=== PATIENT | female | born 1975 | race Caucasian/White ===

== ENCOUNTER 2019-01-12 07:28 | Emergency (ER) | payer OTHER ==
[~2019-01-12] VITALS: Ht 175.3 cm; Wt 77.1 kg
[2019-01-12 07:33] VITALS: BP_SYST 128
--- NOTE | 2019-01-12 07:37 | NUR ---
placed in bed 5
--- NOTE | 2019-01-12 08:04 | NUR ---
ER at bedside examining patient.
--- NOTE | 2019-01-12 08:09 | NUR ---
Patient arrived via POV, AAOx4, and ambulatory with limping gait. Patient c/c of left ankle and left knee pain s/p mechanical fall. Patient fell in hole and twisted ankle and fell. Patient rates pain at 10/10. +2 pedal and posterior tibialis pulses present at this time. Will continue to follow up and monitor.
[2019-01-12] MEDS ORDERED: IBUPROFEN 800 MG TABLET PO ONE (08:30)
--- NOTE | 2019-01-12 08:35 | NUR ---
Patient given motrin 800mg for pain of 10/10. Patient tolerated well. Aware we are waiting for XR results.
--- NOTE | 2019-01-12 08:50 | NUR ---
Posterior leg splint applied to left lower leg. +2 pulse noted. Capillary refill <3 seconds. Patient has ability to move non-splinted digits. Has sensation present to affected site. Skin color within normal limits. Applied for pain management control. Given crutches for ambulation. Crutch training provided. Return demonstration and verbalization.
[2019-01-12 09:15] VITALS: BP_SYST 124
--- NOTE | 2019-01-12 09:15 | NUR ---
Patient given written and verbal discharge instructions and verbalizes understanding. ER MD discussed with patient the results and treatment provided. Patient in stable condition. ID arm band removed. Rx of motrin given. Patient educated on pain management and to follow up with PMD. Pain Scale 2. Opportunity for questions provided and answered. Medication side effect fact sheet provided.
== END 2019-01-12 09:15 | disposition home or self-care (01) ==
LOC: SED 07:28
DX: S82.62XA Displaced fracture of lateral malleolus of left fibula, initial encounter for closed fracture (principal); S93.402A Sprain of unspecified ligament of left ankle, initial encounter; S83.92XA Sprain of unspecified site of left knee, initial encounter; W17.2XXA Fall into hole, initial encounter; Y93.89 Activity, other specified; Y92.89 Other specified places as the place of occurrence of the external cause; Y99.8 Other external cause status
CPT/HCPCS: 73564; 99283

== ENCOUNTER 2019-06-16 01:21 | Emergency (ER) | payer OTHER ==
[~2019-06-16] VITALS: Ht 172.7 cm; Wt 122.5 kg
[2019-06-16 01:21] VITALS: BP_SYST 113
--- NOTE | 2019-06-16 01:25 | NUR ---
Pt placed to ER bed 04, to gown and laboratory monitor. Pt c/o palpitations,non-radiating mid sternal C/P, and SOB. Pt describes C/P as "chest pounding hard." Pt states that she went to bed at 0000, then woke up at 0100 with fast heart rate. HR 198, SPO2 98% RA. Pt states that she takes Vyvanse daily for ADHD x 3 years with no complications. Denies cardiac history. Dr. Nowak called to bedside.
--- NOTE | 2019-06-16 01:40 | NUR ---
# 20 gauge angiocath placed to LFA. Use of asceptic technique. Opsite placed over site. Blood return noted. Blood for lab drawn from site. Flushed with 10 cc of normal saline. No evidence of infiltration noted. Patient tolerated well.
[2019-06-16] MEDS ORDERED: ADENOSINE 6MG/2ML VIAL IVP ONE ×2 (01:45)
--- NOTE | 2019-06-16 01:50 | NUR ---
Dr. Nowak at bedside. Pt c/o mid chest pain 10/04, SOB, and cardiac rhythm continues to be SVT with rate 192. Adenosine 6 mg given rapid IVP followed by NS [address] Nowak.
--- NOTE | 2019-06-16 01:55 | NUR ---
Successful conversion to NSR with HR 92. Pt verbalizes relief in C/P and no c/o SOB.
[2019-06-16] MEDS ORDERED: ADENOSINE 6MG/2ML VIAL ONE ×2 (01:57→01:58)
[2019-06-16] MEDS ORDERED: ONDANSETRON HCL 4 MG/2 ML VIAL IVP ONE (02:00)
[2019-06-16] MEDS ORDERED: NACL 0.9% 1,000 ML IV ONE (02:00)
--- NOTE | 2019-06-16 02:00 | NUR ---
Pt c/o nausea. Dr. Nowak made aware. Pt to receive Zofran.
[2019-06-16] MEDS ORDERED: ONDANSETRON HCL 4 MG/2 ML VIAL ONE (02:01)
--- NOTE | 2019-06-16 02:20 | NUR ---
HR 88, B/P 114/76, R 20, SPO2 98% RA, denies C/P or SOB. Pt assisted to restroom, ambulates with steady gait. Pt returns to bed 04 and placed back on cable installer repairer, VSS.
[2019-06-16 02:22] LABS: ANION GAP 10 (5-15); CALCIUM 8.4 mg/dL (8.4-11.0); CHLORIDE 101 mmol/L (98-107); CREATININE 1.13 mg/dL (0.55-1.30); GLUCOSE 179 mg/dL (70-99); POTASSIUM 3.6 mmol/L (3.5-5.1); SODIUM SERUM 133 mmol/L (136-145); UREA NITROGEN, BLOOD 13 mg/dL (8-21)
[2019-06-16 02:23] LABS: GFR AFRICAN AMERICAN 67 mL/min (>90)
--- NOTE | 2019-06-16 02:25 | NUR ---
Pt report given to DELLA Domínguez.
[2019-06-16 02:26] LABS: BASOPHILS # (AUTO) 0.1 K/uL (0.0-0.2); BASOPHILS % (AUTO) 0.5 % (0.0-2.0); EOSINOPHILS # (AUTO) 0.2 K/uL (0.0-0.4); HEMATOCRIT 41.4 % (36-48); HEMOGLOBIN 13.8 g/dL (12.0-16.0); LYMPHOCYTES # (AUTO) 3.2 K/uL (1.0-5.5); LYMPHOCYTES % (AUTO) 28.7 % (20.5-51.5); MEAN CORPUSCULAR HEMOGLOBIN 30 pg (27-31); MEAN CORPUSCULAR HGB CONC 33 % (32-36); MEAN CORPUSCULAR VOLUME 89 fL (79.0-98.0); MONOCYTES # (AUTO) 0.7 K/uL (0.0-1.0); MONOCYTES % (AUTO) 5.8 % (1.7-9.3); NEUTROPHILS # (AUTO) 7.1 K/uL (1.8-7.7); PLATELET COUNT (AUTO) 334 K/uL (130-430); RED BLOOD CELL COUNT(AUTO) 4.64 MIL/uL (4.2-6.2); RED CELL DISTRIBUTION WIDTH 13.9 % (9.0-15.0); WHITE BLOOD COUNT (AUTO) 11.2 K/uL (4.8-10.8)
--- NOTE | 2019-06-16 02:30 | NUR ---
REPEAT EKG DONE. URINE COLLECTED, DIP STICK DONE, U/A SENT TO LAB. URINE PREG DONE-NEG. PATIENT IN NAD, CALM/ QUIET. SR AT PRESENT.
[2019-06-16 02:36] LABS: ALANINE AMINOTRANSFERASE 62 U/L (12-78); ALBUMIN 3.5 g/dL (3.4-4.8); ASPARTATE AMINOTRANSFERASE 31 U/L (10-37); FREE T4 (FREE THYROXINE) 1.3 ng/dl (0.8-1.5); THYROID STIMULATING HORMONE 6.48 uIu/mL (0.36-3.74); TOTAL BILIRUBIN 1.5 mg/dL (0.0-1.0)
[2019-06-16 02:37] LABS: BILIRUBIN,URINE NEGATIVE (NEGATIVE); BLOOD, URINE NEGATIVE (NEGATIVE); CLARITY/URINE SL CLOUDY (CLEAR); COLOR,URINE YELLOW (YELLOW); GLUCOSE,URINE NEGATIVE (NEGATIVE); KETONES,URINE TRACE (NEGATIVE); LEUKOCYTE ESTERASE ,URINE TRACE (NEGATIVE); NITRITE, URINE NEGATIVE (NEGATIVE); PROTEIN URINE 2+ (NEGATIVE); UROBILINOGEN,URINE 0.2 (0.2-1.0)
[2019-06-16 02:56] LABS: BACTERIA,URINE FEW /HPF (None Seen); FINE GRANULAR CASTS,URINE 0-10 /LPF (None Seen); HYALINE CASTS, URINE 0-10 /LPF (None Seen); RBC,URINE 0-3 /HPF (0-3)
[2019-06-16 02:59] LABS: BARBITURATE, URINE NEGATIVE (NEG <=200); BENZODIAZEPINE, URINE NEGATIVE (NEG <=150); CANNABINOID, URINE NEGATIVE (NEG <=50); COCAINE, URINE NEGATIVE (NEG <=150); METHAMPHETAMINES SCREEN,URINE NEGATIVE (NEG <=500); OPIATE, URINE NEGATIVE (NEG <=100); PHENCYCLIDINE SCREEN,URINE NEGATIVE (NEG <=25); UR TRICYCLIC ANTIDEPRESSANTS NEGATIVE (NEG <=300); URINE AMPHETAMINE POSITIVE (NEG <=500); URINE METHADONE NEGATIVE (NEG <=200); URINE OXYCODONE SCREEN NEGATIVE (NEG <=100); URINE PROPOXYPHENE SCREEN NEGATIVE (NEG <=300)
[2019-06-16 04:30] VITALS: BP_SYST 126
--- NOTE | 2019-06-16 04:30 | NUR ---
Patient given written and verbal discharge instructions and verbalizes understanding. ER MD discussed with patient the results and treatment provided. Patient in stable condition. ID arm band removed. IV catheter removed intact and dressing applied, no active bleeding.Rx of copy given.Patient educated on pain management and to follow up with PMD. Pain Scale 0/10. Opportunity for questions provided and answered. Medication side effect fact sheet provided.
== END 2019-06-16 04:30 | disposition home or self-care (01) ==
LOC: SED 01:21
DX: I47.1 Supraventricular tachycardia (principal); E02 Subclinical iodine-deficiency hypothyroidism; F90.9 Attention-deficit hyperactivity disorder, unspecified type; R42 Dizziness and giddiness
CPT/HCPCS: 36415; 71045; 80053; 80307; 81000; 81025; 84439; 84443; 84484; 85025; 87086; 96361; 96374; 96375; 99284; J0153; J2405; J7030

== ENCOUNTER 2020-01-06 07:16 | Emergency (ER) | payer OTHER ==
[~2020-01-06] VITALS: Ht 175.3 cm; Wt 122.5 kg
[2020-01-06 07:23] VITALS: BP_SYST 159
[2020-01-06] MEDS ORDERED: LORazepam 1 MG TABLET PO ONE (07:45)
[2020-01-06] MEDS ORDERED: ADENOSINE 6MG/2ML VIAL IVP ONE (08:00)
[2020-01-06] MEDS ORDERED: ADENOSINE 6MG/2ML VIAL ONE (08:01)
[2020-01-06] MEDS ORDERED: NACL 0.9% 1,000 ML IV ONE (08:30)
[2020-01-06] MEDS ORDERED: ACETAMINOPHEN 325 MG TABLET PO ONE ×3 (08:30→09:30)
[2020-01-06 08:41] LABS: CALCIUM 8.5 mg/dL (8.4-11.0); CREATININE 0.82 mg/dL (0.55-1.30); POTASSIUM 4.2 mmol/L (3.5-5.1)
[2020-01-06 08:47] LABS: BASOPHILS # (AUTO) 0.1 K/uL (0.0-0.2); BASOPHILS % (AUTO) 0.7 % (0.0-2.0); EOSINOPHILS # (AUTO) 0.3 K/uL (0.0-0.4); EOSINOPHILS % (AUTO) 4.2 % (0.0-4.0); HEMATOCRIT 39.3 % (36-48); HEMOGLOBIN 12.7 g/dL (12.0-16.0); LYMPHOCYTES # (AUTO) 2.1 K/uL (1.0-5.5); LYMPHOCYTES % (AUTO) 25.9 % (20.5-51.5); MEAN CORPUSCULAR HEMOGLOBIN 28 pg (27-31); MEAN CORPUSCULAR HGB CONC 32 % (32-36); MEAN CORPUSCULAR VOLUME 85 fL (79.0-98.0); MONOCYTES # (AUTO) 0.6 K/uL (0.0-1.0); MONOCYTES % (AUTO) 7.9 % (1.7-9.3); NEUTROPHILS # (AUTO) 4.9 K/uL (1.8-7.7); NEUTROPHILS % (AUTO) 61.3 % (40.0-70.0); PLATELET COUNT (AUTO) 342 K/uL (130-430); RED BLOOD CELL COUNT(AUTO) 4.63 MIL/uL (4.2-6.2); RED CELL DISTRIBUTION WIDTH 14.4 % (9.0-15.0); WHITE BLOOD COUNT (AUTO) 7.9 K/uL (4.8-10.8)
[2020-01-06 08:55] LABS: FREE T4 (FREE THYROXINE) 1.2 ng/dl (0.8-1.5); THYROID STIMULATING HORMONE 2.89 uIu/mL (0.36-3.74); TOTAL BILIRUBIN 0.6 mg/dL (0.0-1.0)
[2020-01-06 10:10] VITALS: BP_SYST 142
== END 2020-01-06 10:11 | disposition home or self-care (01) ==
LOC: SED 07:16
DX: I47.1 Supraventricular tachycardia (principal)
CPT/HCPCS: 36415; 80053; 84439; 84443; 84484; 85025; 93005; 96361; 96374; 99291; J0153; J7030

== ENCOUNTER 2020-03-27 03:50 | Observation (INO) | payer OTHER ==
[~2020-03-27] VITALS: Ht 172.7 cm; Wt 122.5 kg
[2020-03-27 03:50] VITALS: BP_SYST 106
[2020-03-27] MEDS ORDERED: DILTIAZEM HCL 25 MG/5 ML VIAL IVP ONE (04:30)
[2020-03-27] MEDS ORDERED: NACL 0.9% 1,000 ML IV ONE (04:30)
[2020-03-27] MEDS ORDERED: DILTIAZEM HCL 25 MG/5 ML VIAL ONE (04:30)
[2020-03-27 04:38] LABS: HEMOGLOBIN 13.3 g/dL (12.0-16.0); MEAN CORPUSCULAR VOLUME 83 fL (79.0-98.0); WHITE BLOOD COUNT (AUTO) 11.2 K/uL (4.8-10.8)
[2020-03-27] MEDS ORDERED: DILTIAZEM HCL 125 MG/25 ML VIAL IV ONE (04:38)
[2020-03-27 04:43] LABS: BASOPHILS # (AUTO) 0.1 K/uL (0.0-0.2); EOSINOPHILS # (AUTO) 0.3 K/uL (0.0-0.4); EOSINOPHILS % (AUTO) 2.8 % (0.0-4.0); HEMATOCRIT 40.6 % (36-48); LYMPHOCYTES # (AUTO) 4.8 K/uL (1.0-5.5); LYMPHOCYTES % (AUTO) 42.8 % (20.5-51.5); MEAN CORPUSCULAR HEMOGLOBIN 27 pg (27-31); MEAN CORPUSCULAR HGB CONC 33 % (32-36); MONOCYTES # (AUTO) 0.8 K/uL (0.0-1.0); MONOCYTES % (AUTO) 6.7 % (1.7-9.3); NEUTROPHILS # (AUTO) 5.2 K/uL (1.8-7.7); NEUTROPHILS % (AUTO) 46.7 % (40.0-70.0); PLATELET COUNT (AUTO) 395 K/uL (130-430)
[2020-03-27] MEDS ORDERED: DIPHENHYDRAMINE INJ 50 MG/ML VIAL IVP ONE (04:45)
[2020-03-27 04:51] LABS: ANION GAP 12 (5-15); CALCIUM 8.7 mg/dL (8.4-11.0); CHLORIDE 102 mmol/L (98-107); CREATININE 0.91 mg/dL (0.55-1.30); GLUCOSE 124 mg/dL (70-99); POTASSIUM 3.9 mmol/L (3.5-5.1); SODIUM SERUM 136 mmol/L (136-145); UREA NITROGEN, BLOOD 14 mg/dL (8-21)
[2020-03-27 04:56] LABS: PROTHROMBIN TIME 9.9 SECS (9.5-12.5)
[2020-03-27 04:59] LABS: ALANINE AMINOTRANSFERASE 87 U/L (12-78); ALBUMIN 3.4 g/dL (3.4-4.8); ASPARTATE AMINOTRANSFERASE 57 U/L (10-37); TOTAL BILIRUBIN 0.6 mg/dL (0.0-1.0)
[2020-03-27] MEDS ORDERED: DIPHENHYDRAMINE INJ 50 MG/ML VIAL ONE (04:59)
[2020-03-27 05:01] LABS: GFR AFRICAN AMERICAN 86 mL/min (>90)
[2020-03-27] MEDS ORDERED: KETAMINE 30 MG/3 ML SYRINGE IVP ONE (05:15)
[2020-03-27] MEDS ORDERED: MIDAZOLAM HCL 5 MG/5 ML VIAL IVP ONE (05:15)
[2020-03-27] MEDS ORDERED: ADENOSINE 6MG/2ML VIAL IVP ONE (05:15)
[2020-03-27] MEDS ORDERED: ADENOSINE 6MG/2ML VIAL ONE (05:37)
[2020-03-27] MEDS ORDERED: LISD30TA PO (05:42)
[2020-03-27] MEDS ORDERED: TEMAZEPAM 15 MG CAPSULE PO PRN (05:45)
[2020-03-27] MEDS ORDERED: ONDANSETRON HCL 4 MG/2 ML VIAL IVP PRN (05:45)
[2020-03-27] MEDS ORDERED: METOCLOPRAMIDE HCL 10 MG/2 ML VIAL IVP PRN (05:45)
[2020-03-27 07:33] VITALS: BP_SYST 152
[2020-03-27] MEDS ORDERED: LORazepam 2 MG/ML VIAL IVP PRN (08:30)
[2020-03-27] MEDS ORDERED: HYDROcodone/ACETAMIN 5-325 MG TAB (NORCO/ VICODIN) PO PRN (08:30)
[2020-03-27] MEDS ORDERED: MORPHINE 2 MG/ML INJ. SYRINGE IVP PRN (08:30)
[2020-03-27] MEDS ORDERED: ACETAMINOPHEN 325 MG TABLET PO PRN (08:30)
[2020-03-27] MEDS ORDERED: NALOXONE HCL 0.4 MG/ML AMP (NARCAN) IVP PRN ×2 (08:30)
[2020-03-27 10:47] VITALS: BP_SYST 113
[2020-03-27 11:20] LABS: BASOPHILS # (AUTO) 0.1 K/uL (0.0-0.2); BASOPHILS % (AUTO) 0.6 % (0.0-2.0); EOSINOPHILS # (AUTO) 0.4 K/uL (0.0-0.4); EOSINOPHILS % (AUTO) 3.5 % (0.0-4.0); HEMATOCRIT 36.6 % (36-48); HEMOGLOBIN 12.1 g/dL (12.0-16.0); LYMPHOCYTES # (AUTO) 3.6 K/uL (1.0-5.5); LYMPHOCYTES % (AUTO) 33.5 % (20.5-51.5); MEAN CORPUSCULAR HEMOGLOBIN 27 pg (27-31); MEAN CORPUSCULAR HGB CONC 33 % (32-36); MEAN CORPUSCULAR VOLUME 82 fL (79.0-98.0); MONOCYTES # (AUTO) 0.8 K/uL (0.0-1.0); MONOCYTES % (AUTO) 7.6 % (1.7-9.3); NEUTROPHILS # (AUTO) 5.8 K/uL (1.8-7.7); NEUTROPHILS % (AUTO) 54.8 % (40.0-70.0); PLATELET COUNT (AUTO) 375 K/uL (130-430); RED BLOOD CELL COUNT(AUTO) 4.44 MIL/uL (4.2-6.2); RED CELL DISTRIBUTION WIDTH 15.1 % (9.0-15.0); WHITE BLOOD COUNT (AUTO) 10.6 K/uL (4.8-10.8)
[2020-03-27 12:06] LABS: ALBUMIN 3.2 g/dL (3.4-4.8); CALCIUM 8.5 mg/dL (8.4-11.0); CREATININE 0.72 mg/dL (0.55-1.30); THYROID STIMULATING HORMONE 1.53 uIu/mL (0.36-3.74); TOTAL BILIRUBIN 0.7 mg/dL (0.0-1.0)
[2020-03-27] MEDS ORDERED: METO25TA3 PO (12:18)
[2020-03-27 13:11] VITALS: BP_SYST 113
== END 2020-03-27 13:55 | disposition home or self-care (01) ==
LOC: SED 03:50 → STU 05:44
PROVIDERS: ADMIT Internal Medicine Hospice and Palliative Medicine; ATTEND Internal Medicine Hospice and Palliative Medicine
DX: I47.1 Supraventricular tachycardia (principal); Z20.828 Contact with and (suspected) exposure to other viral communicable diseases; I49.9 Cardiac arrhythmia, unspecified; F43.9 Reaction to severe stress, unspecified; F41.9 Anxiety disorder, unspecified; Z79.899 Other long term (current) drug therapy; Z68.41 Body mass index [BMI] 40.0-44.9, adult
CPT/HCPCS: 36415; 71045; 80053; 80061; 83735; 84443; 84484; 85025; 85610; 85730; 87426; 93005; 93306; 96365; 96366; 96375; 96376; 99285; G0378; J0153; J1200; J3490 ×2

== ENCOUNTER 2020-10-19 13:00 | Emergency (ER) | payer OTHER ==
[~2020-10-19] VITALS: Ht 175.3 cm; Wt 131.5 kg
[~2020-10-19 13:00] MED LIST: LISD30TA PO; METO25TA3 PO
[2020-10-19] MEDS ORDERED: ADENOSINE 6MG/2ML VIAL IVP ONE (13:30)
[2020-10-19 13:36] LABS: BASOPHILS # (AUTO) 0.1 K/uL (0.0-0.2); BASOPHILS % (AUTO) 0.6 % (0.0-2.0); EOSINOPHILS # (AUTO) 0.2 K/uL (0.0-0.4); EOSINOPHILS % (AUTO) 2.1 % (0.0-4.0); HEMATOCRIT 35.2 % (36-48); HEMOGLOBIN 11.5 g/dL (12.0-16.0); LYMPHOCYTES # (AUTO) 4.1 K/uL (1.0-5.5); LYMPHOCYTES % (AUTO) 34.7 % (20.5-51.5); MEAN CORPUSCULAR HEMOGLOBIN 26 pg (27-31); MEAN CORPUSCULAR HGB CONC 33 % (32-36); MEAN CORPUSCULAR VOLUME 79 fL (79.0-98.0); MONOCYTES # (AUTO) 0.7 K/uL (0.0-1.0); MONOCYTES % (AUTO) 6.3 % (1.7-9.3); NEUTROPHILS # (AUTO) 6.7 K/uL (1.8-7.7); NEUTROPHILS % (AUTO) 56.3 % (40.0-70.0); PLATELET COUNT (AUTO) 399 K/uL (130-430); RED BLOOD CELL COUNT(AUTO) 4.46 MIL/uL (4.2-6.2); RED CELL DISTRIBUTION WIDTH 15.6 % (9.0-15.0); WHITE BLOOD COUNT (AUTO) 11.9 K/uL (4.8-10.8)
[2020-10-19 13:42] VITALS: BP_SYST 124
[2020-10-19 14:03] LABS: CALCIUM 8.7 mg/dL (8.4-11.0); CREATININE 0.89 mg/dL (0.55-1.30); POTASSIUM 4.1 mmol/L (3.5-5.1)
[2020-10-19] MEDS ORDERED: LORA-259 PO (14:06)
[2020-10-19 14:18] LABS: ALBUMIN 3.2 g/dL (3.4-4.8); TOTAL BILIRUBIN 0.4 mg/dL (0.0-1.0)
[2020-10-19 14:43] VITALS: BP_SYST 132
== END 2020-10-19 14:43 | disposition home or self-care (01) ==
LOC: SED 13:00
DX: I47.1 Supraventricular tachycardia (principal); Z79.899 Other long term (current) drug therapy
CPT/HCPCS: 36415; 71045; 80053; 82550; 83880; 84484; 85025; 93005; 96374; 99291; J0153

== ENCOUNTER 2020-11-18 21:29 | Observation (INO) | payer OTHER, SELFPAY ==
[~2020-11-18] VITALS: Ht 172.7 cm; Wt 135.3 kg
[~2020-11-18 21:29] MED LIST changes: +LORA-259 PO
[2020-11-18 21:30] VITALS: BP_SYST 128
[2020-11-18] MEDS ORDERED: ADENOSINE 6MG/2ML VIAL ONE ×2 (21:42→21:44)
[2020-11-18] MEDS ORDERED: ADENOSINE 6MG/2ML VIAL IVP ONE ×2 (22:15)
[2020-11-18 22:33] LABS: CREATININE 0.86 mg/dL (0.55-1.30)
[2020-11-18 22:50] LABS: PHOSPHORUS 3.5 mg/dL (2.7-4.5); THYROID STIMULATING HORMONE 3.05 uIu/mL (0.36-3.74)
[2020-11-19] MEDS ORDERED: ASPIRIN 325 MG TABLET ONE (00:54)
[2020-11-19] MEDS ORDERED: MORPHINE 2 MG/ML INJ. SYRINGE IVP PRN (01:00)
[2020-11-19] MEDS ORDERED: ALBUTEROL SULFATE 0.083% 2.5 MG/3 ML VIAL.NEB INH PRN (01:00)
[2020-11-19] MEDS ORDERED: MORPHINE 4 MG INJ. 4 MG/ML VIAL IVP PRN (01:00)
[2020-11-19] MEDS ORDERED: ASPIRIN 325 MG TABLET PO ONE (01:00)
[2020-11-19] MEDS ORDERED: ACETAMINOPHEN 325 MG TABLET PO PRN (01:00)
[2020-11-19 01:08] LABS: BASOPHILS # (AUTO) 0.1 K/uL (0.0-0.2); BASOPHILS % (AUTO) 0.5 % (0.0-2.0); EOSINOPHILS # (AUTO) 0.2 K/uL (0.0-0.4); EOSINOPHILS % (AUTO) 1.5 % (0.0-4.0); HEMATOCRIT 32.5 % (36-48); HEMOGLOBIN 10.7 g/dL (12.0-16.0); LYMPHOCYTES % (AUTO) 28.1 % (20.5-51.5); MEAN CORPUSCULAR HEMOGLOBIN 26 pg (27-31); MEAN CORPUSCULAR HGB CONC 33 % (32-36); MEAN CORPUSCULAR VOLUME 80 fL (79.0-98.0); MONOCYTES # (AUTO) 0.5 K/uL (0.0-1.0); MONOCYTES % (AUTO) 4.6 % (1.7-9.3); NEUTROPHILS # (AUTO) 6.9 K/uL (1.8-7.7); NEUTROPHILS % (AUTO) 65.3 % (40.0-70.0); PLATELET COUNT (AUTO) 339 K/uL (130-430); RED BLOOD CELL COUNT(AUTO) 4.06 MIL/uL (4.2-6.2); RED CELL DISTRIBUTION WIDTH 16.6 % (9.0-15.0); WHITE BLOOD COUNT (AUTO) 10.6 K/uL (4.8-10.8)
[2020-11-19 02:23] VITALS: BP_SYST 131
[2020-11-19] MEDS: NACL 0.9% 1,000 ML IV SCH ×2 (02:47→13:33)
[2020-11-19 03:00] VITALS: BP_SYST 105
[2020-11-19 08:00] VITALS: BP_SYST 134
[2020-11-19] MEDS ORDERED: ASPIRIN 325 MG TABLET PO SCH (09:00)
[2020-11-19] MEDS ORDERED: METOPROLOL SUCCINATE 50 MG TAB.SR.24H (TOPROL XL) PO SCH (09:00)
[2020-11-19 09:09] LABS: BASOPHILS % (AUTO) 0.5 % (0.0-2.0); EOSINOPHILS # (AUTO) 0.2 K/uL (0.0-0.4); EOSINOPHILS % (AUTO) 2.1 % (0.0-4.0); HEMOGLOBIN 10.4 g/dL (12.0-16.0); LYMPHOCYTES % (AUTO) 33.6 % (20.5-51.5); MEAN CORPUSCULAR HEMOGLOBIN 26 pg (27-31); MEAN CORPUSCULAR HGB CONC 33 % (32-36); MEAN CORPUSCULAR VOLUME 79 fL (79.0-98.0); MONOCYTES # (AUTO) 0.6 K/uL (0.0-1.0); MONOCYTES % (AUTO) 7.1 % (1.7-9.3); NEUTROPHILS # (AUTO) 5.1 K/uL (1.8-7.7); NEUTROPHILS % (AUTO) 56.7 % (40.0-70.0); PLATELET COUNT (AUTO) 317 K/uL (130-430); RED BLOOD CELL COUNT(AUTO) 4.06 MIL/uL (4.2-6.2); RED CELL DISTRIBUTION WIDTH 16.4 % (9.0-15.0)
[2020-11-19 09:23] LABS: ALBUMIN 2.6 g/dL (3.4-4.8); CREATININE 0.71 mg/dL (0.55-1.30); POTASSIUM 4.1 mmol/L (3.5-5.1); TOTAL BILIRUBIN 0.8 mg/dL (0.0-1.0)
[2020-11-19] MEDS ORDERED: METO50TA7 PO (10:00)
[2020-11-19 12:00] VITALS: BP_SYST 137
[2020-11-19 15:33] VITALS: BP_SYST 130
== END 2020-11-19 15:50 | disposition home or self-care (01) ==
LOC: SED 21:29 → STU 11-19 01:00
PROVIDERS: ADMIT Internal Medicine Hospice and Palliative Medicine; ATTEND Internal Medicine Hospice and Palliative Medicine
DX: I47.1 Supraventricular tachycardia (principal); Z20.822 Contact with and (suspected) exposure to COVID-19; I21.4 Non-ST elevation (NSTEMI) myocardial infarction; I24.8 Other forms of acute ischemic heart disease; E66.01 Morbid (severe) obesity due to excess calories; G89.21 Chronic pain due to trauma; M54.9 Dorsalgia, unspecified; F90.9 Attention-deficit hyperactivity disorder, unspecified type; Z79.899 Other long term (current) drug therapy
CPT/HCPCS: 36415; 71045; 80048; 80053; 80061; 83735; 84100; 84443 ×2; 84484 ×2; 85025; 87426; 93005; 93306; 96361; 96374; 96375; 99291; G0378; J0153; J2270

== ENCOUNTER 2021-03-03 07:29 | Emergency (ER) | payer OTHER, SELFPAY ==
[~2021-03-03] VITALS: Ht 175.3 cm; Wt 127.0 kg
[~2021-03-03 07:29] MED LIST changes: -LORA-259 PO; -METO25TA3 PO; +METO50TA7 PO
--- NOTE | 2021-03-03 07:30 | NUR ---
Placed in room 5 . Placed on site monitor, blood pressure machine and pulse oximeter. To gown for exam. Side rails up. Report given to DELLA Espana.
[2021-03-03] MEDS ORDERED: ADENOSINE 6MG/2ML VIAL ONE (07:47)
--- NOTE | 2021-03-03 07:50 | NUR ---
DR AZUL AT BEDSIDE
[2021-03-03 07:58] VITALS: BP_SYST 100
--- NOTE | 2021-03-03 07:58 | NUR ---
TOLERATED ADENOSINE WELL. PT RESTING EASY, NO DYSPNEA, PLACED ON O2 2L NC
[2021-03-03] MEDS ORDERED: ASPIRIN 81 MG TAB.CHEW PO ONE (08:00)
[2021-03-03] MEDS ORDERED: ASPIRIN 325 MG TABLET PO ONE (08:15)
[2021-03-03] MEDS ORDERED: ADENOSINE 6MG/2ML VIAL IVP ONE (08:15)
[2021-03-03] MEDS ORDERED: ASPIRIN 325 MG TABLET (ECOTRIN) PO ONE (08:21)
[2021-03-03 08:22] LABS: BASOPHILS # (AUTO) 0.1 K/uL (0.0-0.2); BASOPHILS % (AUTO) 0.8 % (0.0-2.0); EOSINOPHILS # (AUTO) 0.2 K/uL (0.0-0.4); EOSINOPHILS % (AUTO) 2.3 % (0.0-4.0); HEMATOCRIT 36.5 % (36-48); HEMOGLOBIN 12.2 g/dL (12.0-16.0); LYMPHOCYTES # (AUTO) 2.9 K/uL (1.0-5.5); LYMPHOCYTES % (AUTO) 32.8 % (20.5-51.5); MEAN CORPUSCULAR HEMOGLOBIN 27 pg (27-31); MEAN CORPUSCULAR HGB CONC 33 % (32-36); MEAN CORPUSCULAR VOLUME 80 fL (79.0-98.0); MONOCYTES # (AUTO) 0.5 K/uL (0.0-1.0); MONOCYTES % (AUTO) 6.1 % (1.7-9.3); NEUTROPHILS # (AUTO) 5.1 K/uL (1.8-7.7); PLATELET COUNT (AUTO) 380 K/uL (130-430); RED BLOOD CELL COUNT(AUTO) 4.58 MIL/uL (4.2-6.2); RED CELL DISTRIBUTION WIDTH 15.7 % (9.0-15.0); WHITE BLOOD COUNT (AUTO) 8.8 K/uL (4.8-10.8)
--- NOTE | 2021-03-03 09:03 | NUR ---
DR AZUL IN TO REASSESS
[2021-03-03 09:04] LABS: CALCIUM 8.5 mg/dL (8.4-11.0); CREATININE 0.97 mg/dL (0.55-1.30); POTASSIUM 3.6 mmol/L (3.5-5.1)
[2021-03-03 09:10] LABS: ALBUMIN 3.3 g/dL (3.4-4.8); TOTAL BILIRUBIN 0.9 mg/dL (0.0-1.0)
--- NOTE | 2021-03-03 09:26 | NUR ---
SITTING UP READING BOOK, RESP UNLABORED, SKIN WARM AND DRY. COMMUNICATES CLEARLY NO DISTRESS
--- NOTE | 2021-03-03 09:27 | NUR ---
ERMD AT BEDSIDE
--- NOTE | 2021-03-03 13:30 | NUR ---
Patient given written and verbal discharge instructions and verbalizes understanding. ER MD discussed with patient the results and treatment provided. Patient in stable condition. ID arm band removed. IV catheter removed intact and dressing applied, no active bleeding. Patient educated on pain management and to follow up with PMD. Pain Scale Opportunity for questions provided and answered.
[2021-03-03 13:35] VITALS: BP_SYST 119
== END 2021-03-03 13:30 | disposition home or self-care (01) ==
LOC: SED 07:29
DX: I47.1 Supraventricular tachycardia (principal); R07.89 Other chest pain; I10 Essential (primary) hypertension; E11.9 Type 2 diabetes mellitus without complications; Z79.899 Other long term (current) drug therapy
CPT/HCPCS: 36415; 71045; 80053; 83880; 84484; 85025; 93005; 96374; 99285; J0153

== ENCOUNTER 2021-05-30 13:41 | Emergency (ER) | payer OTHER ==
[~2021-05-30] VITALS: Ht 175.3 cm; Wt 99.8 kg
--- NOTE | 2021-05-30 13:42 | NUR ---
Placed in room 01 . Placed on security monitor, blood pressure machine and pulse oximeter. To gown for exam. Side rails up.
[2021-05-30 13:45] VITALS: BP_SYST 129
[2021-05-30] MEDS ORDERED: NACL 0.9% 1,000 ML IV ONE (14:00)
== END 2021-05-30 23:30 | disposition home or self-care (01) ==
LOC: SED 13:41
DX: I47.1 Supraventricular tachycardia (principal); F41.9 Anxiety disorder, unspecified
CPT/HCPCS: 93005; 96360; 99283; J7030

== ENCOUNTER 2021-08-21 10:21 | Emergency (ER) | payer OTHER ==
[~2021-08-21] VITALS: Ht 172.7 cm; Wt 127.0 kg
[2021-08-21 10:30] VITALS: BP_SYST 116
[2021-08-21] MEDS ORDERED: NACL 0.9% 1,000 ML IV ONE (10:45)
[2021-08-21] MEDS ORDERED: ADENOSINE 6MG/2ML VIAL IVP ONE (10:45)
--- NOTE | 2021-08-21 10:45 | NUR ---
ER at bedside examining patient.
--- NOTE | 2021-08-21 10:46 | NUR ---
Víctor presents to the ER with chest pain and palpitations. Patient states she has had this feeling since yesterday. She has a hx of SVT and believes she is having them again. Patient was seen here a month ago for SVT. Upon assessment, the patient is tachycardia and appears anxious. When lying down she feels a pressure on her chest and becomes tachypniec. blood pressure is WNL, pulse is tachy, pain is 5/10. Patient skin is intact. Respiratory is regular with episodes of anxiety/tachypnea.
--- NOTE | 2021-08-21 12:39 | NUR ---
Patient triaged and placed in room 4. Elevated HR and patient appears in no acute distress at this time. Accompanied by self.
[2021-08-21 13:08] VITALS: BP_SYST 120
--- NOTE | 2021-08-21 13:11 | NUR ---
Patient given written and verbal discharge instructions and verbalizes understanding. ER MD discussed with patient the results and treatment provided. Patient in stable condition. ID arm band removed. IV catheter removed intact and dressing applied, no active bleeding. Patient educated on pain management and to follow up with PMD. Pain Scale . Opportunity for questions provided and answered. Medication side effect fact sheet provided.
== END 2021-08-21 13:11 | disposition home or self-care (01) ==
LOC: SED 10:21
DX: I47.1 Supraventricular tachycardia (principal); F90.9 Attention-deficit hyperactivity disorder, unspecified type
CPT/HCPCS: 96361; 96374; 99291; J0153

== ENCOUNTER 2021-11-19 11:15 | Emergency (ER) | payer OTHER ==
[~2021-11-19] VITALS: Ht 172.7 cm; Wt 131.5 kg
[2021-11-19 11:25] VITALS: BP_SYST 132
--- NOTE | 2021-11-19 11:25 | NUR ---
Placed in room 08. Placed on compliance monitor, blood pressure machine and pulse oximeter. To room for exam. Side rails up. Report given to Esau HULL.
[2021-11-19] MEDS ORDERED: ADENOSINE 6MG/2ML VIAL ONE (11:29)
[2021-11-19] MEDS ORDERED: ADENOSINE 6MG/2ML VIAL IVP ONE (11:30)
--- NOTE | 2021-11-19 11:55 | NUR ---
In ER bed 8 States that she thinks she is in SVT because she has had it before MD has seen EKG reveals SVT IV placed Given Adenosine as ordered Converted to SR Repeat EKG obtained Blood sent.
[2021-11-19 12:08] LABS: BASOPHILS # (AUTO) 0.1 K/uL (0.0-0.2); BASOPHILS % (AUTO) 0.7 % (0.0-2.0); EOSINOPHILS # (AUTO) 0.2 K/uL (0.0-0.4); EOSINOPHILS % (AUTO) 1.9 % (0.0-4.0); HEMATOCRIT 35.4 % (36-48); HEMOGLOBIN 11.5 g/dL (12.0-16.0); LYMPHOCYTES % (AUTO) 37.9 % (20.5-51.5); MEAN CORPUSCULAR HEMOGLOBIN 24 pg (27-31); MEAN CORPUSCULAR HGB CONC 33 % (32-36); MEAN CORPUSCULAR VOLUME 75 fL (79.0-98.0); MONOCYTES # (AUTO) 0.4 K/uL (0.0-1.0); MONOCYTES % (AUTO) 5.6 % (1.7-9.3); NEUTROPHILS # (AUTO) 4.3 K/uL (1.8-7.7); NEUTROPHILS % (AUTO) 53.9 % (40.0-70.0); PLATELET COUNT (AUTO) 400 K/uL (130-430); RED BLOOD CELL COUNT(AUTO) 4.75 MIL/uL (4.2-6.2)
[2021-11-19 12:18] LABS: ANION GAP 12 (5-15); CALCIUM 7.9 mg/dL (8.4-11.0); CHLORIDE 109 mmol/L (98-107); CREATININE 1.04 mg/dL (0.55-1.30); GLUCOSE 157 mg/dL (70-99); SODIUM SERUM 141 mmol/L (136-145); UREA NITROGEN, BLOOD 11 mg/dL (8-21)
[2021-11-19 12:20] LABS: GFR AFRICAN AMERICAN 73 mL/min (>90)
[2021-11-19 12:29] LABS: ALANINE AMINOTRANSFERASE 62 U/L (12-78); ALBUMIN 2.9 g/dL (3.4-4.8); ASPARTATE AMINOTRANSFERASE 39 U/L (10-37); TOTAL BILIRUBIN 0.5 mg/dL (0.0-1.0)
[2021-11-19] MEDS ORDERED: ALPR0.25 PO (13:23)
[2021-11-19] MEDS ORDERED: ATEN-41 PO (13:23)
== END 2021-11-19 14:03 | disposition home or self-care (01) ==
LOC: SED 11:15
DX: I47.1 Supraventricular tachycardia (principal); R00.2 Palpitations; Z79.899 Other long term (current) drug therapy
CPT/HCPCS: 36415; 71045; 80053; 84484; 85025; 93005; 99285; J0153